=== PATIENT | female | born 1955 | race Caucasian/White ===

== ENCOUNTER 2017-07-25 11:28 | Emergency (ER) | payer OTHER ==
[~2017-07-25] VITALS: Ht 152.4 cm; Wt 84.4 kg
[2017-07-25 11:34] VITALS: BP 155/61; Ht 152.4 cm; Wt 84.4 kg
== END 2017-07-25 12:45 | disposition home or self-care (01) ==
LOC: ED 11:28
DX: J20.9 Acute bronchitis, unspecified (principal)